=== PATIENT | female | born 1970 | race African-American/Black ===

== ENCOUNTER 2019-10-19 12:33 | Emergency (ER) | payer SELFPAY ==
[~2019-10-19] VITALS: Ht 175.3 cm; Wt 95.3 kg
--- NOTE | 2019-10-19 12:56 | Emergency Room Report ---
History of Present Illness General Chief Complaint: General Complaint Source: Patient Present Illness HPI Disclaimer: Please note that this report is being documented using DRAGON technology. This can lead to erroneous entry secondary to incorrect interpretation by the dictating instrument. HPI: 49-year-old female presents for evaluation of palpitations, near syncope, rash. Over the past 4 days she notes episodes of tachycardia, palpitations and near syncope. No loss of consciousness. No head injury. She states that she feels extreme anxiety, pulsations in her head, lightheadedness but with no vertiginous symptoms. She reports nausea but no vomiting. Similar presentation to when she lost her grandfather many years ago. She was prescribed anxiolytics but no longer takes them. She does report recent stress over the COVID-19 pandemic and having her children at home all the time with her. She also reports recent irregular menstrual bleeding that can be heavy at times. LMP was 2 days ago though this was off cycle. Lastly, she complains of exacerbation of eczema. She has been applying apple cider vinegar and drinking apple cider vinegar as well as a home remedy for eczema. Denies skin sloughing , bleeding. Reports itching. PMH: Eczema, anxiety PSH: Thyroidectomy Allergies: None reported Social Hx: Regular tobacco use, regular THC use, occasional alcohol use Allergies: Coded Allergies: No Known Allergies (Unverified , 10/19/19) COVID-19 Screening Contact w/high risk pt: No Experienced COVID-19 symptoms?: No COVID-19 Testing performed FINAL INSPECTOR PAPER: No Patient History Last Menstrual Period: last week Now: No Nursing Documentation-PMH Past Medical History: No History, Except For History Of Psychiatric Problem: Yes - anxiety Review of Systems All Other Systems: negative except mentioned in HPI Physical Exam Vital Signs Date Time Temp Pulse Resp B/P (MAP) Pulse Ox O2 Delivery O2 Flow Rate FiO2 10/19/19 12:35 97.9 81 18 132/90 (104) 97 Room Air General: Awake and alert, anxious appearing HEENT: NC/AT. EOMI. Cardiovascular: RRR. S1 and S2 normal. No murmur appreciated Resp: Normal work of breathing. No cough, wheezing or crackles appreciated Abdomen: Abdomen is soft, nondistended. Nontender Skin: Scaly rash over the upper extremities with multiple excoriations. No edema, no skin sloughing, Nikolsky negative. No vesicles or blistering. MSK: Normal tone and bulk. Moving all extremities. No obvious deformity. Neuro: Awake and alert. Mentating appropriately. Medical Decision Making Diagnostic Impression: Primary Impression: Anxiety Additional Impressions: Eczema Palpitations ER Course Is a 49-year-old female presenting for evaluation of palpitations, near syncope and rash. Differential includes was not limited to anxiety, panic attack, arrhythmia, electrolyte abnormality, dehydration, symptomatic anemia, rash, eczema. Patient is well-appearing though anxious. EKG and chest x-ray unremarkable. Labs have returned within normal limits including negative troponin and TSH within normal limits. Believe her symptoms are likely related to stress and anxiety and encouraged her to follow-up with her PMD and possible referral to psychiatry to discuss the symptoms. She is no acute distress at this moment stable for outpatient follow-up. I advised her to return to the emergency department any new or worsening symptoms. She understands and agrees with this treatment plan. Laboratory Tests Test 10/19/19 13:14 White Blood Count 9.4 K/UL (4.8-10.8) Red Blood Count 4.80 M/UL (4.20-5.40) Hemoglobin 14.2 G/DL (12.0-16.0) Hematocrit 43.6 % (37.0-47.0) Mean Corpuscular Volume 91 FL (80-99) Mean Corpuscular Hemoglobin 29.5 PG (27.0-31.0) Mean Corpuscular Hemoglobin Concent 32.5 G/DL (32.0-36.0) Red Cell Distribution Width 12.7 % (11.6-14.8) Platelet Count 437 K/UL (150-450) Mean Platelet Volume 6.5 FL (6.5-10.1) Neutrophils (%) (Auto) 75.7 % (45.0-75.0) H Lymphocytes (%) (Auto) 14.7 % (20.0-45.0) L Monocytes (%) (Auto) 5.0 % (1.0-10.0) Eosinophils (%) (Auto) 2.5 % (0.0-3.0) Basophils (%) (Auto) 2.1 % (0.0-2.0) H Sodium Level 135 MMOL/L (136-145) L Potassium Level 4.9 MMOL/L (3.5-5.1) Chloride Level 100 MMOL/L (98-107) Carbon Dioxide Level 25 MMOL/L (21-32) Anion Gap 10 mmol/L (5-15) Blood Urea Nitrogen 8 mg/dL (7-18) Creatinine 0.9 MG/DL (0.55-1.30) Estimated Glomerular Filtration Rate > 60 mL/min (>60) Glucose Level 110 MG/DL (74-106) H Calcium Level 9.4 MG/DL (8.5-10.1) Total Bilirubin 0.4 MG/DL (0.2-1.0) Aspartate Amino Transferase (AST) 43 U/L (15-37) H Alanine Aminotransferase (ALT) 21 U/L (12-78) Alkaline Phosphatase 96 U/L (46-116) Troponin I 0.000 ng/mL (0.000-0.056) Total Protein 8.4 G/DL (6.4-8.2) H Albumin 4.1 G/DL (3.4-5.0) Globulin 4.3 g/dL Albumin/Globulin Ratio 1.0 (1.0-2.7) Thyroid Stimulating Hormone (TSH) 1.764 uiU/mL (0.358-3.740) EKG Diagnostic Results EKG Time: 13:02 Rate: normal Rhythm: NSR ST Segments: no acute changes Other Impression Sinus rhythm, normal axis, normal intervals, nonspecific T wave changes. No ST segment changes. Rhythm Strip Diag. Results Rhythm Strip Time: 13:02 EP Interpretation: yes Rate: 60s Rhythm: NSR, no PVC's, no ectopy Chest X-Ray Diagnostic Results Chest X-Ray Diagnostic Results : Chest X-Ray Ordered: Yes # of Views/Limited/Complete: 1 View Indication: Other - Palpitations EP Interpretation: Yes Interpretation: no consolidation, no effusion, no pneumothorax, no acute cardiopulmonary disease Impression: No acute disease Electronically Signed by: Electronically signed by Dr. Omid Rodriguez Last Vital Signs Date Time Temp Pulse Resp B/P (MAP) Pulse Ox O2 Delivery O2 Flow Rate FiO2 10/19/19 12:35 97.9 81 18 132/90 (104) 97 Room Air Disposition: HOME, SELF-CARE Condition: Stable Scripts No Active Prescriptions or Reported Meds Omid Rodriguez MD Oct 19, 2019 12:56
[2019-10-19 13:25] LABS: BASOPHILS % (AUTO) 2.1 % (0.0-2.0); EOSINOPHILS % (AUTO) 2.5 % (0.0-3.0); HEMATOCRIT 43.6 % (37.0-47.0); HEMOGLOBIN 14.2 G/DL (12.0-16.0); LYMPHOCYTES % (AUTO) 14.7 % (20.0-45.0); MEAN CORPUSCULAR VOLUME 91 FL (80-99); NEUTROPHILS % (AUTO) 75.7 % (45.0-75.0); PLATELET COUNT 437 K/UL (150-450); RED CELL DISTRIBUTION WIDTH 12.7 % (11.6-14.8); WHITE BLOOD COUNT 9.4 K/UL (4.8-10.8)
[2019-10-19 13:29] VITALS: BP 140/79
[2019-10-19 13:36] LABS: ANION GAP 10 mmol/L (5-15); BLOOD UREA NITROGEN 8 mg/dL (7-18); CALCIUM 9.4 MG/DL (8.5-10.1); CARBON DIOXIDE 25 MMOL/L (21-32); CHLORIDE 100 MMOL/L (98-107); CREATININE 0.9 MG/DL (0.55-1.30); POTASSIUM 4.9 MMOL/L (3.5-5.1); SODIUM 135 MMOL/L (136-145)
[2019-10-19 13:49] LABS: ALANINE AMINOTRANSFERASE 21 U/L (12-78); ALBUMIN 4.1 G/DL (3.4-5.0); ALKALINE PHOSPHATASE 96 U/L (46-116); ASPARTATE AMINO TRANSFERASE 43 U/L (15-37); BILIRUBIN,TOTAL 0.4 MG/DL (0.2-1.0)
--- NOTE | 2019-10-19 14:01 | Diagnostic Imaging Report ---
Indication: Chest pain Technique: One view of the chest Comparison: none Findings: Lungs and pleural spaces are clear. Heart size is normal. Impression: No acute process
[2019-10-19 14:12] VITALS: BP 118/73
== END 2019-10-19 14:13 | disposition home or self-care (01) ==
LOC: EMR 12:56
DX: F41.9 Anxiety disorder, unspecified (principal); L30.9 Dermatitis, unspecified; R00.2 Palpitations; E89.0 Postprocedural hypothyroidism; Z72.0 Tobacco use
CPT/HCPCS: 36415; 71045; 80053; 84443; 84484; 85025; 93005; 99283